=== PATIENT | female | born 1985 | race Two or more races ===

== ENCOUNTER 2018-09-08 20:22 | Emergency (ER) | payer SELFPAY ==
[2018-09-08 22:40] LABS: ABSOLUTE EOSINOPHILS # (AUTO) 0.1 10^3/uL (0.0-0.6); ABSOLUTE LYMPHOCYTES (AUTO) 2.6 10^3/uL (0.5-4.7); ABSOLUTE MONOCYTES (AUTO) 0.6 10^3/uL (0.1-1.4); ABSOLUTE NEUT (AUTO) 4.8 10^3/uL (1.7-8.2); BASOPHILS % (AUTO) 0.3 % (0-2); EOSINOPHILS % (AUTO) 1.3 % (0-6); HEMATOCRIT 35.8 % (36.0-47.0); HEMOGLOBIN 12.2 g/dL (12.0-15.5); LYMPHOCYTES % (AUTO) 31.8 % (13-45); MEAN CORPUSCULAR HEMOGLOBIN 30.1 pg (27.0-33.4); MEAN CORPUSCULAR VOLUME 89 fl (80-97); MONOCYTES % (AUTO) 7.9 % (3-13); PLATELET COUNT 237 10^3/uL (150-450); RED BLOOD COUNT 4.04 10^6/uL (3.72-5.28); RED CELL DISTRIBUTION WIDTH 13.4 % (11.5-14.0); SEGMENTED NEUTROPHILS % (AUTO) 58.7 % (42-78); TOTAL CELLS COUNTED % (AUTO) 100 %; WHITE BLOOD COUNT 8.2 10^3/uL (4.0-10.5)
[2018-09-08 22:50] LABS: AMORPHOUS SEDIMENT,URINE TRACE /HPF; APPEARANCE,URINE SLIGHTLY-CLOUDY; BILIRUBIN,URINE NEGATIVE (NEGATIVE); COLOR,URINE YELLOW; GLUCOSE, URINE NEGATIVE (NEGATIVE); KETONES,URINE NEGATIVE (NEGATIVE); LEUKOCYTE ESTERASE,URINE TRACE (NEGATIVE); NITRITE,URINE NEGATIVE (NEGATIVE); PROTEIN,URINE NEGATIVE (NEGATIVE); URINE SPECIFIC GRAVITY 1.012; UROBILINOGEN,URINE NEGATIVE mg/dL (<2.0)
[2018-09-08 23:02] LABS: ANION GAP 9 (5-19); BLOOD UREA NITROGEN 7 mg/dL (7-20); CALCIUM 9.3 mg/dL (8.4-10.2); CARBON DIOXIDE 23 mmol/L (22-30); CHLORIDE 105 mmol/L (98-107); GLUCOSE 82 mg/dL (75-110); SODIUM 137.2 mmol/L (137-145)
[2018-09-09] MEDS ORDERED: METOCLOPRAMIDE HCL INJ/PF 10 MG/2 ML SDV IM ONE (00:36)
--- NOTE | 2018-09-09 00:49 | ER Document Report ---
ED General - General Chief Complaint: Headache Stated Complaint: HEADACHE, RIGHT EAR PAIN, DIARRHEA Time Seen by Provider: 09/09/18 00:29 Notes: Patient is a 32-year-old female presents with a few different complaints. She is Thai-speaking but she does have family member at bedside who said that she would prefer to translate for the patient. I asked family member to asked questions exactly how I am asking them and to translate the patient's response exactly how she says it. Patient is found members agreeable to this and did perform this task for me. Patient is a 32-year-old female presents with complaint of being . She had some cramping pain in the lower abdomen as well as in the lower back. No abnormal vaginal discharge or bleeding. No dysuria. Patient also complains of some intermittent headaches for a few weeks. Says they come and go. Gradual onset. Looking at bright lights make the headaches worse. When she gets a headache she gets a feel sensation as of when the swelling gets her right eardrum. She says she did take Tylenol for the headaches initially but when she found out she was she stopped taking the Tylenol. She denies any focal weakness or numbness. No trauma. No injuries. No fevers. No other complaints at this time. TRAVEL OUTSIDE OF THE [place] IN LAST 30 DAYS: No - Related Data Allergies/Adverse Reactions: No Known Allergies Allergy (Verified 07/15/12 12:29) Past Medical History - Social History Smoking Status: Never Smoker Chew tobacco use (# tins/day): No Frequency of alcohol use: None Drug Abuse: None Family History: Reviewed & Not Pertinent Patient has suicidal ideation: No Patient has homicidal ideation: No - Past Medical History Cardiac Medical History: Reports: Hx Hypertension Renal/ Medical History: Denies: Hx Peritoneal Dialysis - Immunizations Hx Diphtheria, Pertussis, Tetanus Vaccination: No Review of Systems - Review of Systems Notes: My Normal Review Basic REVIEW OF SYSTEMS: CONSTITUTIONAL : Denies fever, chills, or sweats. Denies recent illness. EENT: Denies eye, throat, or mouth pain or symptoms. Denies nasal or sinus congestion. Sensation of wind blowing against right TM. CARDIOVASCULAR: Denies chest pain. RESPIRATORY: Denies cough, cold, or chest congestion. Denies shortness of breath, difficulty breathing, or wheezing. GASTROINTESTINAL: Denies abdominal pain. Morning sickness GENITOURINARY: Denies difficulty urinating, painful urination, burning, frequency, or blood in urine. FEMALE GENITOURINARY: . Some lower abdominal cramping. MUSCULOSKELETAL: Denies neck or back pain or joint pain or swelling. SKIN: Denies rash or skin lesions.. NEUROLOGICAL: Denies altered mental status or loss of consciousness. Has a headache. Denies weakness or paralysis or loss of use of either side. Denies problems with gait or speech. Denies sensory or motor loss. ALL OTHER SYSTEMS REVIEWED AND NEGATIVE. Physical Exam - Vital signs Vitals: Temp Pulse Resp BP Pulse Ox 98.8 F 84 22 H 133/79 H 100 09/08/18 20:27 09/08/18 20:27 09/08/18 20:09/08/18 20:09/08/18 20:27 - Notes Notes: General Appearance: Well nourished, alert, cooperative, no acute distress, no obvious discomfort. Well-appearing. Vitals: reviewed, See vital signs table. Head: no swelling or tenderness to the head Eyes: PERRL, EOMI, Conjuctiva clear Mouth: No decreasd moisture Ears: Normal-appearing tympanic membranes bilaterally. Throat: No tonsillar inflammation, No airway obstruction, No lymphadenopathy Lungs: No wheezing, No rales, No rhonci, No accessory muscle use, good air exchange bilaterally. Heart: Normal rate, Regular rythm, No murmur, no rub Abdomen: Normal BS, soft, No rigidity, No abdominal tenderness, No guarding, no rebound, no abdominal masses, no organomegaly Extremities: strength 5/5 in all extremities, good pulses in all extremities, no swelling or tenderness in the extremities, no edema. Skin: warm, dry, appropriate color, no rash Neuro: speech clear, oriented x 3, normal affect, responds appropriately to questions. Course - Re-evaluation Re-evalutation: 09/10/18 04:02 Evaluation the patient is here I do not see any signs of infection or swelling. Patient is acting appropriately. Neurologic exam is normal. This apparently has been a recurring issue since becoming . She does have some intermittent mild headaches associate with this as well. She does not have any focal neurologic deficits and does not have a severe headache or rapid onset headache that would require CT scan at this time. Ultrasound the baby shows normal IUP with appropriate heart rate. She has had some nausea. I therefore have given her Reglan. This helped both her headache and her nausea. I will prescribe this for her to help with any recurrent headaches nausea she has been . I encouraged her return to ER immediately if she has any vaginal bleeding, increasing pain, abnormal discharge, vomiting, or severe headache. Patient agrees with plan and will be discharged home. Dictation of this chart was performed using voice recognition software; therefore, there may be some unintended grammatical errors. - Vital Signs Vital signs: Temp Pulse Resp BP Pulse Ox 97.8 F 84 16 119/64 100 09/09/18 02:30 09/09/18 02:30 09/09/18 02:30 09/09/18 02:30 09/09/18 02:30 - Laboratory Result Diagrams: 09/08/18 22:15 09/08/18 22:15 Laboratory results interpreted by me: 09/08/18 09/08/18 09/08/18 22:15 22:15 22:15 Hct 35.8 L Creatinine 0.51 L Beta HCG, Quant 54360.00 H Urine Blood SMALL H Ur Leukocyte Esterase TRACE H Discharge - Discharge Clinical Impression: Headache Qualifiers: Headache type: unspecified Headache chronicity pattern: episodic headache Intractability: not intractable Qualified Code(s): R51 - Headache Qualifiers: Weeks of gestation: 17 weeks Qualified Code(s): Z3A.17 - 17 weeks gestation of Condition: Good Disposition: HOME, SELF-CARE Additional Instructions: Your ultrasound shows that you are 17 weeks . No concerning findings on the ultrasound. Your laboratory blood work did not show any concerning abnormalities. The medicine we gave you for headache is called Reglan. This medication is safe in and can be used for headaches or vomiting or nausea. I have prescribed this medication as well. The medication will make you little bit sleepy. Please do not drive after taking the medication. Please follow-up with your OB doctor this week for reevaluation. Please return to the ER if you have worsening headaches, vomiting, fevers, abdominal pain, vaginal bleeding, abnormal vaginal discharge, or if you feel unwell in any way. Prescriptions: Metoclopramide HCl [Reglan 10 mg Tablet] 1 tab PO ASDIR PRN #25 tablet PRN Reason: Forms: Return to Work
--- NOTE | 2018-09-09 02:03 | RADIOLOGY REPORT (SQ) ---
EXAM DESCRIPTION: US LIMITED COMPLETED DATE/TME: 09/09/2018 00:36 CLINICAL HISTORY: 32 years, Female, abdominal pain in COMPARISON: None. TECHNIQUE: Limited OB ultrasound LIMITATIONS: None. FINDINGS: Single, live intrauterine gestation in the breech presentation. Current ultrasound age is 17 weeks 2 days. A detailed anatomic assessment was not performed. The placenta is posterior in location with a grade 1 echotexture. No evidence for previa. Amniotic fluid index is 5.7 cm. Heart tones obtained at 155 bpm. IMPRESSION: Single, live intrauterine gestation with current ultrasound age 17 weeks 2 days. Nonemergent follow-up recommended copyright 2010 [employer]- All Rights Reserved
[2018-09-09 02:57] VITALS: BP 119/64
== END 2018-09-09 02:57 | disposition home or self-care (01) ==
LOC: ER 20:22
DX: O26.892 Other specified pregnancy related conditions, second trimester (principal); R51 Headache; R10.30 Lower abdominal pain, unspecified; R11.0 Nausea; O99.89 Other specified diseases and conditions complicating pregnancy, childbirth and the puerperium; M54.5 Low back pain; O16.2 Unspecified maternal hypertension, second trimester; Z3A.17 17 weeks gestation of pregnancy
CPT/HCPCS: 99284; 96372; 36415; 84702; 85025; 80048; 81001; 76815; J2765

== ENCOUNTER → 2018-09-29 | Outpatient (CLI) | payer SELFPAY ==
--- NOTE | 2018-09-29 15:40 | RADIOLOGY REPORT (SQ) ---
EXAM DESCRIPTION: U/S OB 14+ TRNABD 1GES W/O DOP COMPLETED DATE/TIME: 09/29/2018 2:45 pm REASON FOR STUDY: Z34.82 ENCOUNTER FOR SUPRVSN OF NORMAL , FIRST TRIMESTER Z34.81 ENCOUNTE R FOR SUPRVSN OF NORMAL , FIRST TRIM COMPARISON: 09/09/2018 TECHNIQUE: Static and Dynamic grayscale imaging performed of gravid uterus using transabdominal appr oach. Additional selected color Doppler and spectral images recorded. All stored on PACS. LIMITATIONS: None. FINDINGS: FETUSES SEEN:1 EGA: 20 weeks 5 days Calculated using BPD,FL,HC,AC documented on images. No discrepancy with clinica l dates. LYNETTE: 02/11/2019 EFW: 395 g PERCENTILE: Not calculated GLORIA: 16.2 PLACENTA: Fundal grade 1 PRESENTATION: Breech/variable ANATOMY: HEART RATE: 149 beats per minute. FOUR CHAMBER HEART: Visualized. THREE VESSEL CORD: Yes. CORD INSERTION: Visualized. KIDNEYS AND BLADDER: Visualized. Appear normal. STOMACH: Visualized. Appears normal. SPINE: Normal as visualized. BRAIN AND LATERAL VENTRICLES: Visualized. Appear normal. OTHER: No other significant finding. MATERNAL ADNEXA: Maternal ovaries not visualized. CERVICAL LENGTH: 3.5 cm. Closed. OTHER: No other significant finding. IMPRESSION: LIVING INTRAUTERINE . ESTIMATED GESTATIONAL AGE 20 weeks 5 days. NO VISUALIZED ANOMALIES. Trimester of : Second trimester - 13 weeks 1 day to 27 weeks 6 days. TECHNICAL DOCUMENTATION: JOB ID: [id number] [employer]- All Rights Reserved Reading location - IP/workstation name: [email or web address]
== END ==
LOC: RAD 13:43
PROVIDERS: ATTEND Midwife
DX: Z34.82 Encounter for supervision of other normal pregnancy, second trimester (principal)
CPT/HCPCS: 76805

== ENCOUNTER 2018-12-11 10:27 | Outpatient (CLI) | payer SELFPAY ==
[2018-12-11 11:22] LABS: APPEARANCE,URINE SLIGHTLY-CLOUDY; BILIRUBIN,URINE NEGATIVE (NEGATIVE); COLOR,URINE AMBER; GLUCOSE, URINE NEGATIVE (NEGATIVE); KETONES,URINE TRACE mg/dL (NEGATIVE); LEUKOCYTE ESTERASE,URINE NEGATIVE (NEGATIVE); NITRITE,URINE NEGATIVE (NEGATIVE); PROTEIN,URINE 30 mg/dL (NEGATIVE); URINE SPECIFIC GRAVITY 1.025; UROBILINOGEN,URINE NEGATIVE mg/dL (<2.0)
[2018-12-11 11:32] LABS: BACTERIA (WET MOUNT) 4+ BACTERIA SEEN; EPITHELIALS (WET MOUNT) 4+ EPITHELIALS SEEN; RBCS (WET MOUNT) 1+ RBCS SEEN; T.VAGINALIS (WET MOUNT) NO TRICHOMONAS SEEN; WBCS (WET MOUNT) 3+ WBCS SEEN; YEAST (WET MOUNT) NO YEAST SEEN
[2018-12-11 11:55] LABS: URINE AMPHETAMINES SCREEN NEGATIVE; URINE BARBITURATES SCREEN NEGATIVE; URINE BENZODIAZEPINES SCREEN NEGATIVE; URINE COCAINE SCREEN NEGATIVE; URINE MARIJUANA (THC) SCREEN NEGATIVE; URINE METHADONE SCREEN NEGATIVE; URINE PHENCYCLIDINE SCREEN NEGATIVE
[2018-12-11 12:57] LABS: CHLAM PCR NOT DETECTED (NOT DETECT)
== END 2018-12-11 13:20 | disposition home or self-care (01) ==
LOC: LC 10:27
PROVIDERS: ATTEND Obstetrics & Gynecology Gynecology
PROC: 4A1HXCZ Monitoring of Products of Conception, Cardiac Rate, External Approach (ICD-10-PCS; principal; 2018-12-11)
DX: O47.03 False labor before 37 completed weeks of gestation, third trimester (principal); Z3A.31 31 weeks gestation of pregnancy
CPT/HCPCS: 80307; 81001; 84112; 87210; 87491; 87591

== ENCOUNTER → 2019-02-13 | Outpatient (CLI) | payer SELFPAY ==
--- NOTE | 2019-02-13 15:27 | RADIOLOGY REPORT (SQ) ---
EXAM DESCRIPTION: U/S OB 14+ TRNABD 1GES W/O DOP COMPLETED DATE/TIME: 02/13/2019 2:48 pm REASON FOR STUDY: Z34.83 ENCOUNTER FOR SUPRVSN OF NORMAL , THIRD TRIMESTER Z34.83 ENCOUNTE R FOR SUPRVSN OF NORMAL , THIRD TRIM COMPARISON: None. TECHNIQUE: Static and Dynamic grayscale imaging performed of gravid uterus using transabdominal appr oach. Additional selected color Doppler and spectral images recorded. All stored on PACS. LIMITATIONS: None. FINDINGS: FETUSES SEEN:1 EGA: 38 weeks 2 days Calculated using BPD,FL,HC,AC documented on images. No discrepancy with clinica l dates. LYNETTE: 02/25/2019 EFW: 3500+/- 518 grams PERCENTILE: Not calculated GLORIA: 9.3 cm. PLACENTA: Fundal. Grade 1. PRESENTATION: Cephalic. ANATOMY: HEART RATE: 152 beats per minute. FOUR CHAMBER HEART: Seen on the prior scan from 09/29/2018. THREE VESSEL CORD: Seen on the prior scan from 09/29/2018. CORD INSERTION: Seen on the prior scan from 09/29/2018. KIDNEYS AND BLADDER: Visualized. Appear normal. STOMACH: Visualized. Appears normal. SPINE: Seen on the prior scan from 09/29/2018. BRAIN AND LATERAL VENTRICLES: Seen on the prior scan from 09/29/2018. OTHER: No other significant finding. MATERNAL ADNEXA: Maternal ovaries not visualized. CERVICAL LENGTH: Not seen well enough. Closed. OTHER: No other significant finding. IMPRESSION: LIVING INTRAUTERINE . ESTIMATED GESTATIONAL AGE 38 weeks 2 days. NO VISUALIZED ANOMALIES. Trimester of : Third trimester - 28 weeks to delivery. TECHNICAL DOCUMENTATION: JOB ID: [id number]- All Rights Reserved Reading location - IP/workstation name: [email or web address]
== END ==
LOC: RAD 13:44
PROVIDERS: ATTEND Midwife
DX: Z34.83 Encounter for supervision of other normal pregnancy, third trimester (principal)
CPT/HCPCS: 76805

== ENCOUNTER 2019-02-18 14:07 | Outpatient (CLI) | payer SELFPAY ==
[2019-02-18 14:53] LABS: APPEARANCE,URINE CLOUDY; BILIRUBIN,URINE NEGATIVE (NEGATIVE); COLOR,URINE YELLOW; GLUCOSE, URINE NEGATIVE (NEGATIVE); KETONES,URINE NEGATIVE (NEGATIVE); LEUKOCYTE ESTERASE,URINE LARGE (NEGATIVE); NITRITE,URINE NEGATIVE (NEGATIVE); PROTEIN,URINE NEGATIVE (NEGATIVE); URINE SPECIFIC GRAVITY 1.017; UROBILINOGEN,URINE NEGATIVE mg/dL (<2.0)
[2019-02-18 15:05] LABS: URINE AMPHETAMINES SCREEN NEGATIVE; URINE BARBITURATES SCREEN NEGATIVE; URINE BENZODIAZEPINES SCREEN NEGATIVE; URINE COCAINE SCREEN NEGATIVE; URINE MARIJUANA (THC) SCREEN NEGATIVE; URINE METHADONE SCREEN NEGATIVE; URINE PHENCYCLIDINE SCREEN NEGATIVE
[2019-02-18] MEDS ORDERED: RINGERS SOLUTION,LACTATED 2,000 ML IV ONE (15:30)
[2019-02-18] MEDS ORDERED: RINGERS SOLUTION,LACTATED 1,000 ML IV PRN (16:17)
--- NOTE | 2019-02-18 20:15 | RADIOLOGY REPORT (SQ) ---
EXAM DESCRIPTION: [facility]: US LIMITED CLINICAL HISTORY: 33 years Female, IUP 40+2 limited care GLORIA COMPARISON: 02/13/2019. Report reviewed but images are not available for comparison. FINDINGS: Single fetus in vertex position heart rate 144 BPM Fluid: GLORIA 8.1 cm, adequate Placenta: Fundal Cervix could not be visualized IMPRESSION: 1. GLORIA 8.1 cm, adequate
--- NOTE | 2019-02-18 21:18 | Non Stress Test Report ---
Non Stress Test Datetime Report Generated by CPN: 02/18/2019 21:18 DEMOGRAPHIC EGA NST: 40.2 INDICATION Indication for Study: Ordered by Provider MONITORING Monitor Explained: Monitor Explained; Test Explained; Patient Verbalized Understanding Time on Monitor: 02/18/2019 19:31 Time off Monitor: 02/18/2019 20:28 NST Duration: 57 NST INTERVENTIONS NST Interventions: PO Hydration; IV Fluids Physician Notified NST: Dr. Salinas BABY A: [id number] BABY A Movement : Present Contraction Frequency : irregular FHR Baseline : 135 Accelerations : 15X15 Decelerations : None Variability : Moderate 6-25bpm NST Review: Meets Criteria for Reactive NST NST Review and Verified By : ANAI Schmidt Results: Reactive NST REPORT Report Trigger: Send Report
== END 2019-02-18 20:28 | disposition home or self-care (01) ==
LOC: LC 14:07
PROVIDERS: ATTEND Obstetrics & Gynecology
PROC: 4A1HXCZ Monitoring of Products of Conception, Cardiac Rate, External Approach (ICD-10-PCS; principal; 2019-02-18)
DX: O48.0 Post-term pregnancy (principal); O09.33 Supervision of pregnancy with insufficient antenatal care, third trimester; Z3A.40 40 weeks gestation of pregnancy
CPT/HCPCS: 59025; 76815; 80307; 81005; 84112

== ENCOUNTER 2019-02-20 17:45 | Inpatient (IN) | payer SELFPAY ==
[2019-02-20] MEDS ORDERED: RINGERS SOLUTION,LACTATED 1,000 ML IV ONE (18:47)
[2019-02-20 19:15] LABS: ABSOLUTE LYMPHOCYTES (AUTO) 2.1 10^3/uL (0.5-4.7); ABSOLUTE MONOCYTES (AUTO) 0.5 10^3/uL (0.1-1.4); ABSOLUTE NEUT (AUTO) 5.3 10^3/uL (1.7-8.2); BASOPHILS % (AUTO) 0.4 % (0-2); EOSINOPHILS % (AUTO) 0.6 % (0-6); HEMATOCRIT 32.3 % (36.0-47.0); LYMPHOCYTES % (AUTO) 25.9 % (13-45); MEAN CORPUSCULAR VOLUME 88 fl (80-97); MONOCYTES % (AUTO) 6.5 % (3-13); PLATELET COUNT 200 10^3/uL (150-450); RED BLOOD COUNT 3.66 10^6/uL (3.72-5.28); RED CELL DISTRIBUTION WIDTH 14.6 % (11.5-14.0); SEGMENTED NEUTROPHILS % (AUTO) 66.6 % (42-78); TOTAL CELLS COUNTED % (AUTO) 100 %
[2019-02-20 20:12] LABS: URINE AMPHETAMINES SCREEN NEGATIVE; URINE BARBITURATES SCREEN NEGATIVE; URINE BENZODIAZEPINES SCREEN NEGATIVE; URINE COCAINE SCREEN NEGATIVE; URINE MARIJUANA (THC) SCREEN NEGATIVE; URINE METHADONE SCREEN NEGATIVE; URINE PHENCYCLIDINE SCREEN NEGATIVE
--- NOTE | 2019-02-20 20:35 | Admission Physical ---
Datetime Report Generated by CPN: 02/20/2019 20:35 CURRENT ADMISSION Chief Complaint: Other Chief Complaint Other: oligohydramnios Indication for Induction: Oligohydramnios Admit Impression : Term, Intrauterine ; No Active Labor; Intact Membranes Admit Plan: Admit to Unit; Initiate Labor Induction Protocol ALLERGIES Medication Allergies: No Medication Allergies: No Known Allergies (02/20/2019) Latex: No Latex Allergies Food Allergies: None Environmental Allergies: None OBSTETRICAL HISTORY EDC: 02/16/2019 00:00 : 5 Para: 4 Term: 4 : 0 SAB: 0 IAB: 0 Ectopic: 0 Livin Cesareans: 1 VBACs: 0 Multiple Births: 0 Gestational Diabetes: No Rh Sensitization: No Incompetent Cervix: No MARY: No Infertility: No ART Treatment: No Uterine Anomaly: No IUGR: No Hx Previous C/S: Yes Macrosomia: No Hx Loss/Stillborn: No PIH: No Hx : No Placenta Previa/Abruption: Yes Depression/PP Depression: No PTL/PROM: No Post Hemorrhage: Yes Current Procedures: Ultrasound; NST Obstetrical History Comments: G1- 2002 PPH with blood transfusion G2- 2007 G3- 2008 G4-2013 primary c/s placental abruption G5- current limited PNC SEE RECORDS Alcohol: No Marijuana : No Cocaine: No Other Illicit Drugs: No Cigarettes: Never Smoker. [id number] MEDICAL HISTORY Diabetes: No Blood Transfusion: Yes Pulmonary Disease (Asthma, TB): No Breast Disease: No Hypertension: No Machine Molder Squeeze Surgery: No Heart Disease: No Hosp/Surgery: Yes Autoimmune Disorder: No Anesthetic Complications: No Kidney Disease: No Abnormal Pap Smear: No Neuro/Epilepsy: No Psychiatric Disorders: No Other Medical Diseases: No Hepatitis/Liver Disease: No Significant Family History: No Varicosities/Phlebitis: No Trauma/Violence : No Thyroid Dysfunction: No Medical History Comments: , CHILDBIRTH blood transfusion 2003, anemia, INFECTIOUS HISTORY Gonorrhea: No Genital Herpes: No Chlamydia: No Tuberculosis: No Syphilis: No Hepatitis: No HIV/AIDS Exposure: No Rash or Viral Illness: No HPV: No PHYSICAL EXAM General: Normal HEENT: Normal Neurologic: Normal Thyroid: Normal Heart: Normal Lungs: Normal Breast: Normal Back: Normal Abdomen: Normal Genitourinary Exam: Normal Extremities: Normal DTRs: Normal Pelvic Type: Adequate Vital Signs: Reviewed; Within Normal Limits VAGINAL EXAM Dilatation: 1 Effacement: 50 Station: -3 Contraction Comments: rare MEMBRANES Membranes: Intact FETUS A EGA: 40.4 Monitoring: External US FHR- Baseline: 150s Variability: Moderate 6-25bpm Accelerations: 15X15 Decelerations: None FHR Category: Category I Admit Comment: presents to L_D from the office secondary to oligohydramnios. Her GLORIA is 4 cm. She reports good movement and has no complaints. She is GBS Neg. She has h/o (3) vaginal deliveries and had a Primary LTCS secondary to placental abruption w/ her last delivery. PLANS FOR LABOR AND DELIVERY Labor and Delivery: None Pain Management: Natural Feeding Preference: Breast Benefit of Breast Feed Discussed: Yes Circumcision: N/A INFORMED CONSENT Signature: with User ID: [email or web address]
[2019-02-20] MEDS ORDERED: OXYTOCIN 10 UNIT/ML VIAL ONE (20:48)
[2019-02-20] MEDS ORDERED: MISOPROSTOL 0.2 MG TABLET ONE (20:48)
[2019-02-20] MEDS ORDERED: OXYTOCIN/NORMAL SALINE 20 UNIT/1,000 ML RTUINJ ONE (20:49)
[2019-02-20] MEDS ORDERED: LIDOCAINE 1% INJ-PF (10 MG/ML) 30 ML SDV ONE (20:49)
[2019-02-20] MEDS ORDERED: PHENYLEPHRINE HCL INJ/PF 10 MG/1 ML SDV ONE (23:22)
[2019-02-20] MEDS ORDERED: EPHEDRINE SULFATE INJ 50 MG/1 ML AMPULE ONE (23:23)
[2019-02-20] MEDS ORDERED: BUPIVACAINE HCL 0.25 % INJ/PF (2.5 MG/1 ML) 30 ML VIAL ONE (23:23)
[2019-02-20] MEDS ORDERED: FENTANYL CITRATE INJ/PF 100 MCG/2 ML AMPUL ONE (23:23)
[2019-02-20] MEDS ORDERED: FENTANYL/BUPIVACAINE/NS/PF 300 MCG/150 ML RTUINJ EPI ONE (23:23)
[2019-02-21] MEDS ORDERED: HYDRALAZINE HCL INJ/PF 20 MG/1 ML SDV ONE (03:19)
[2019-02-21] MEDS ORDERED: HYDRALAZINE HCL INJ/PF 20 MG/1 ML SDV IV ONE (04:30)
[2019-02-21] MEDS ORDERED: NIFEDIPINE 30 MG TAB.ER.24 PO ONE ×2 (06:21→07:30)
[2019-02-21 08:09] LABS: ALBUMIN 3.4 g/dL (3.5-5.0); ALKALINE PHOSPHATASE 164 U/L (38-126); ANION GAP 10 (5-19); ASPARTATE AMINO TRANSFERASE 32 U/L (14-36); BILIRUBIN,DIRECT 0.1 mg/dL (0.0-0.4); BILIRUBIN,TOTAL 0.5 mg/dL (0.2-1.3); BLOOD UREA NITROGEN 5 mg/dL (7-20); CALCIUM 8.9 mg/dL (8.4-10.2); CARBON DIOXIDE 22 mmol/L (22-30); CHLORIDE 103 mmol/L (98-107); POTASSIUM 3.7 mmol/L (3.6-5.0); TOTAL PROTEIN 6.8 g/dL (6.3-8.2)
[2019-02-21 08:14] LABS: GLUCOSE 69 mg/dL (75-110)
[2019-02-21] MEDS ORDERED: RINGERS SOLUTION,LACTATED 1,000 ML IV PRN (09:03)
[2019-02-21] MEDS ORDERED: PSEUDOEPHEDRINE HCL 30 MG TABLET PO PRN (10:39)
[2019-02-21] MEDS ORDERED: PROMETHAZINE HCL 25 MG SUPP.RECT PR PRN (10:39)
[2019-02-21] MEDS ORDERED: PROMETHAZINE HCL INJ 25 MG/1 ML VIAL IV PRN (10:39)
[2019-02-21] MEDS ORDERED: GLYCERIN/WITCH HAZEL LEAF 1 EACH MED..WIPE TP PRN (10:39)
[2019-02-21] MEDS ORDERED: OXYTOCIN/NORMAL SALINE 20 UNIT/1,000 ML RTUINJ IV PRN (10:39)
[2019-02-21] MEDS ORDERED: DIPH/PERTUSS(ACELL)/TETANUS VAC/PF 0.5 ML SYR (>=10YO) IM PRN (10:39)
[2019-02-21] MEDS ORDERED: DIBUCAINE 1% OINTMENT 56 GM TP PRN (10:39)
[2019-02-21] MEDS ORDERED: MEASLES,MUMPS&RUBELLA VACC/PF 0.5 ML VIAL SUBCUT PRN (10:39)
[2019-02-21] MEDS ORDERED: NA PHOS,M-B/NA PHOS,DI-BA (ADULT) 133 ML ENEMA PR PRN (10:39)
[2019-02-21] MEDS ORDERED: BENZOCAINE/MENTHOL AEROSOL SPRAY 56 ML TOP PRN (10:39)
[2019-02-21] MEDS ORDERED: ACETAMINOPHEN WITH CODEINE #3 TABLET PO PRN ×2 (10:39)
[2019-02-21] MEDS ORDERED: MAGNESIUM HYDROXIDE SUSP 30 ML UDCUP PO PRN (10:39)
[2019-02-21] MEDS ORDERED: PROMETHAZINE HCL 25 MG TABLET PO PRN (10:39)
[2019-02-21] MEDS ORDERED: ZOLPIDEM TARTRATE 5 MG TABLET PO PRN (10:39)
[2019-02-21] MEDS ORDERED: DIPHENHYDRAMINE HCL 25 MG CAPSULE PO PRN (10:39)
[2019-02-21] MEDS ORDERED: ACETAMINOPHEN 325 MG TABLET PO PRN (10:39)
--- NOTE | 2019-02-21 10:50 | Warning Signs in Babies ---
VOD Warning Signs Datetime Report Generated by CPN: 02/21/2019 10:50 VOD#608 -Warning Signs in Babies: Viewed with Parent(s)/Family (02/21/2019 10:30:Anita Akbar RN)
[2019-02-21] MEDS ORDERED: IBUPROFEN 800 MG TABLET ONE (11:15)
[2019-02-21] MEDS: IBUPROFEN 800 MG TABLET PO SCH ×2 (15:21→21:57)
[2019-02-21] MEDS: FERROUS SULFATE 325 MG TABLET PO SCH (17:10)
[2019-02-21] MEDS: DOCUSATE SODIUM 100 MG CAPSULE PO SCH (17:10)
[2019-02-21] MEDS: FAMOTIDINE 20 MG TABLET PO SCH (21:57)
[2019-02-22 05:51] LABS: HEMATOCRIT 32.3 % (36.0-47.0); MEAN CORPUSCULAR HEMOGLOBIN 29.9 pg (27.0-33.4); MEAN CORPUSCULAR HGB CONC 33.9 g/dL (32.0-36.0); MEAN CORPUSCULAR VOLUME 88 fl (80-97); PLATELET COUNT 192 10^3/uL (150-450); RED BLOOD COUNT 3.66 10^6/uL (3.72-5.28); RED CELL DISTRIBUTION WIDTH 14.6 % (11.5-14.0); WHITE BLOOD COUNT 10.3 10^3/uL (4.0-10.5)
[2019-02-22] MEDS: IBUPROFEN 800 MG TABLET PO SCH ×3 (06:05→21:18)
[2019-02-22] MEDS: PRENATAL VITAMIN W DHA CAPSULE PO SCH (09:17)
[2019-02-22] MEDS: SENNOSIDES/DOCUSATE 8.6-50 MG 1 EACH TABLET PO SCH (09:17)
[2019-02-22] MEDS: DOCUSATE SODIUM 100 MG CAPSULE PO SCH ×2 (09:18→18:09)
[2019-02-22] MEDS: FAMOTIDINE 20 MG TABLET PO SCH ×2 (09:18→21:18)
[2019-02-22] MEDS: FERROUS SULFATE 325 MG TABLET PO SCH ×2 (09:18→18:09)
--- NOTE | 2019-02-22 10:13 | PDOC PROGRESS REPORT ---
Subjective-OB Progress Note for:: 02/22/19 Subjective: Doing well, no c/o, voiding, Physical Exam (OB) Vital Signs: Temp Pulse Resp BP Pulse Ox 98.1 F 65 16 108/57 L 97 02/22/19 07:42 02/22/19 07:42 02/22/19 07:42 02/22/19 07:42 02/22/19 07:42 Intake & Output 02/21/19 02/22/19 02/23/19 06:59 06:59 06:59 Weight 101.7 kg - Lochia Lochia Amount: Scant < 10 ml Lochia Color: Rubra/Red - Abdomen Fundal Description: Firm, Midline Fundal Height: u/u - u/2 Objective-Diagnostic Laboratory: 02/22/19 05:26 02/21/19 07:22 02/22/19 05:26 WBC 10.3 RBC 3.66 L Hgb 11.0 L Hct 32.3 L MCV 88 MCH 29.9 MCHC 33.9 RDW 14.6 H Plt Count 192 Assessment and Plan(PN) - Assessment and Plan (1) Non-Mexican speaking patient Is this a current diagnosis for this admission?: Yes (2) Vaginal after , delivered, current hospitalization Is this a current diagnosis for this admission?: Yes (3) Oligohydramnios antepartum Qualifiers: Fetus number: single or unspecified fetus Qualified Code(s): O41.00X0 - Oligohydramnios, unspecified trimester, not applicable or unspecified Is this a current diagnosis for this admission?: Yes - Time Spent with Patient Time with patient: Less than 15 minutes Medications reviewed and adjusted accordingly: Yes - Disposition Anticipated Discharge: Home Within: within 24 hours
[2019-02-23] MEDS: IBUPROFEN 800 MG TABLET PO SCH (06:10)
[2019-02-23] MEDS: DOCUSATE SODIUM 100 MG CAPSULE PO SCH (09:11)
[2019-02-23] MEDS: PRENATAL VITAMIN W DHA CAPSULE PO SCH (09:11)
[2019-02-23] MEDS: FAMOTIDINE 20 MG TABLET PO SCH (09:11)
[2019-02-23] MEDS: FERROUS SULFATE 325 MG TABLET PO SCH (09:11)
[2019-02-23] MEDS: SENNOSIDES/DOCUSATE 8.6-50 MG 1 EACH TABLET PO SCH (09:11)
[2019-02-23 09:59] VITALS: BP 126/74
[2019-02-23] MEDS ORDERED: IBUPROFEN 800 MG TABLET PO SCH (10:00)
--- NOTE | 2019-02-23 10:15 | PDOC DISCHARGE SUMMARY ---
Impression - Admit/DC Date/PCP Admission Date/Primary Care Provider: 02/20/19 17:45 JEANINE GARCIA CNM Discharge Date: 02/23/19 - PP Day #2, doing well, plans IUD for PP contraception, pt to f/u with the [facility]. , O negative - Discharge Diagnosis (1) Normal course Is this a current diagnosis for this admission?: Yes (2) Non-Bermudian speaking patient Is this a current diagnosis for this admission?: Yes (3) Oligohydramnios antepartum Is this a current diagnosis for this admission?: Yes (4) Vaginal after , delivered, current hospitalization Is this a current diagnosis for this admission?: Yes - Additional Information Resuscitation Status: Full Code Discharge Diet: As Tolerated, Regular Discharge Activity: Activity As Tolerated, No Lifting Over 10 Pounds, Pelvic Rest Referrals: JEANINE GARCIA CNM [Primary Care Provider] - Prescriptions: Ibuprofen [Motrin 800 mg Tablet] 800 mg PO Q8A #60 tablet Home Medications: 95/Iron Fum/Folic/Dha [ + Dha Combo Pack] 1 tab PO DAILY 12/11/18 Ibuprofen [Motrin 800 mg Tablet] 800 mg PO Q8A #60 tablet 02/23/19 HPI Reason(s) for Admission: Induction of Labor, Obstetric Complications Admission Note: oligohydramnios Procedures: NST, Ultrasound, Management of Obstetric Complications Intrapartum Procedure Note: successful Hospital Course Hospital Course: routine Results Laboratory Results: WBC 10.3 10^3/uL (4.0-10.5) 02/22/19 05:26 RBC 3.66 10^6/uL (3.72-5.28) L 02/22/19 05:26 Hgb 11.0 g/dL (12.0-15.5) L 02/22/19 05:26 Hct 32.3 % (36.0-47.0) L 02/22/19 05:26 MCV 88 fl (80-97) 02/22/19 05:26 MCH 29.9 pg (27.0-33.4) 02/22/19 05:26 MCHC 33.9 g/dL (32.0-36.0) 02/22/19 05:26 RDW 14.6 % (11.5-14.0) H 02/22/19 05:26 Plt Count 192 10^3/uL (150-450) 02/22/19 05:26 Lymph % (Auto) 25.9 % (13-45) 02/20/19 19:00 Beltrami % (Auto) 6.5 % (3-13) 02/20/19 19:00 Eos % (Auto) 0.6 % (0-6) 02/20/19 19:00 Baso % (Auto) 0.4 % (0-2) 02/20/19 19:00 Absolute Neuts (auto) 5.3 10^3/uL (1.7-8.2) 02/20/19 19:00 Absolute Lymphs (auto) 2.1 10^3/uL (0.5-4.7) 02/20/19 19:00 Absolute Monos (auto) 0.5 10^3/uL (0.1-1.4) 02/20/19 19:00 Absolute Eos (auto) 0.0 10^3/uL (0.0-0.6) 02/20/19 19:00 Absolute Basos (auto) 0.0 10^3/uL (0.0-0.2) 02/20/19 19:00 Seg Neutrophils % 66.6 % (42-78) 02/20/19 19:00 Sodium 134.8 mmol/L (137-145) L 02/21/19 07:22 Potassium 3.7 mmol/L (3.6-5.0) 02/21/19 07:22 Chloride 103 mmol/L (98-107) 02/21/19 07:22 Carbon Dioxide 22 mmol/L (22-30) 02/21/19 07:22 Anion Gap 10 (5-19) 02/21/19 07:22 BUN 5 mg/dL (7-20) L 02/21/19 07:22 Creatinine 0.54 mg/dL (0.52-1.25) 02/21/19 07:22 Est GFR ( Amer) > 60 (>60) 02/21/19 07:22 Est GFR (MDRD) Non-Af > 60 (>60) 02/21/19 07:22 Glucose 69 mg/dL (75-110) L 02/21/19 07:22 Uric Acid 4.0 mg/dL (2.5-6.2) 02/21/19 07:22 Calcium 8.9 mg/dL (8.4-10.2) 02/21/19 07:22 Total Bilirubin 0.5 mg/dL (0.2-1.3) 02/21/19 07:22 Direct Bilirubin 0.1 mg/dL (0.0-0.4) 02/21/19 07:22 Neonat Total Bilirubin Not Reportable 02/21/19 07:22 Neonat Direct Bilirubin Not Reportable 02/21/19 07:22 Neonat Indirect Bili Not Reportable 02/21/19 07:22 AST 32 U/L (14-36) 02/21/19 07:22 ALT 20 U/L (<35) 02/21/19 07:22 Alkaline Phosphatase 164 U/L (38-126) H 02/21/19 07:22 Lactate Dehydrogenase 181 U/L (120-246) 02/21/19 07:22 Total Protein 6.8 g/dL (6.3-8.2) 02/21/19 07:22 Albumin 3.4 g/dL (3.5-5.0) L 02/21/19 07:22 Urine Opiates Screen NEGATIVE 02/20/19 19:37 Urine Methadone Screen NEGATIVE 02/20/19 19:37 Ur Barbiturates Screen NEGATIVE 02/20/19 19:37 Ur Phencyclidine Scrn NEGATIVE 02/20/19 19:37 Ur Amphetamines Screen NEGATIVE 02/20/19 19:37 U Benzodiazepines Scrn NEGATIVE 02/20/19 19:37 Urine Cocaine Screen NEGATIVE 02/20/19 19:37 U Marijuana (THC) Screen NEGATIVE 02/20/19 19:37 RPR NONREACTIVE (NONREACTIVE) 02/20/19 19:00 Blood Type O NEGATIVE 02/20/19 19:00 Antibody Screen NEGATIVE 02/20/19 19:00 Plan Health Concerns: none Plan of Treatment: d/c to home, pt to f/u in 6 wks at [facility] for PP check-up. Plans IUD Time Spent: Less than 30 Minutes
--- NOTE | 2019-02-24 12:01 | Delivery Summary ---
Del Sum A-C Datetime Report Generated by CPN: 02/24/2019 12:01 DELIVERY PERSONNEL DELIVERY PERSONNEL: [id number] Delivery Doctor:: Dina Cottrell MD Anesthesiologist:: Venita Little MD Labor and Delivery Nurse:: Anita Akbar RNdistrict wire chief Nurse:: Capri Avila RN Safety Supervisor/BRANDING MACHINE TENDER: Jessica Dobson CST Additional Personnel: : Natalia Gaffney RN MATERNAL INFORMATION Delivery Anesthesia: Epidural Medications After Delivery: Pitocin Bolus-Please Comment Meds After Delivery Comment: Pitocin 20U/1000mL Delivery QBL: 50 Maternal Complications: None Provider Comments: VFI delivered in DEEPA presentation with double nuchal cord and compound left hand. Shoulders and body delivered without difficulty. Cord doubly clamped and to maternal abdomen for NRP. Placenta delivered intact spontaneously. FF at U. Mother and baby stable upon provider leaving the room. Superficial perineal lacerations hemostatic and no need for repair. successful . LABOR SUMMARY EDC: 02/16/2019 00:00 No. Babies in Womb: 1 Attempted: Yes Labor Anesthesia: Epidural LABOR INFORMATION Reason for Induction: Oligohydramnios Reason for Induction- Other: Onset of Labor: 02/21/2019 02:00 Complete Dilatation: 02/21/2019 10:17 Other Ripening Agents: 8 Oxytocin: Induction Group B Beta Strep: NEGATIVE Steroids Given: None Reason Steroids Not Administered: Not Applicable MEMBRANES Membranes Rupture Method: Artificial Rupture of Membranes: 02/21/2019 09:16 Length of Rupture (hr): 1.08 Amniotic Fluid Amount: None STAGES OF LABOR Stage 1 hr: 8 Stage 1 min: 17 Stage 2 hr: 0 Stage 2 min: 4 Stage 3 hr: 0 Stage 3 min: 2 Total Time in Labor hr: 8 Total Time in Labor min: 23 VAGINAL DELIVERY Episiotomy: None Laceration #1: Perineal Laceration Extension #1: N/A Other Laceration: superficial tear, no repair needed Laceration Repair: Not Applicable Laceration Repair Note: superficial abrasion on perineum, no repair needed. Sponge Count Correct: Yes Sharps Count Correct: Yes BABY A INFORMATION Delivery Date/Time: 02/21/2019 10:21 Method of Delivery: Vaginal Born in Route : Yes : Successful Forceps: N/A Vacuum Extraction: N/A Shoulder Dystocia : No PRESENTATION/POSITION BABY A Presentation: Cephalic Cephalic Presentation: Vertex Vertex Position: Left Occipital Anterior Breech Presentation: N/A PLACENTA INFORMATION BABY A Placenta Delivery Time : 02/21/2019 10:23 Placenta Method of Delivery: Spontaneous Placenta Status: Delivered SCORES BABY A Heart Rate 1 min: >100 bpm Resp Effort 1 min: Good Cry Reflex Irritability 1 min: Cough or Sneeze or Pulls Away Muscle Tone 1 min: Active Motion Color 1 min: Blue/Pale Resuscitation Effort 1 min: Tactile Stimulation SCORE 1 MIN: 8 Heart Rate 5 min: >100 bpm Resp Effort 5 min: Good Cry Reflex Irritability 5 min: Cough or Sneeze or Pulls Away Muscle Tone 5 min: Active Motion Color 5 min: Body [place], Extremities Blue Resuscitation Effort 5 min: Tactile Stimulation SCORE 5 MIN: 9 INFANT INFORMATION BABY A Gestational Age at Delivery: 40.5 Gestational Status: Full Term- 39- 40.6 Weeks Infant Outcome : Liveborn Infant Condition : Stable Infant Sex: Female IDENTIFICATION BABY A Infant Verification Date/Time: 02/21/2019 11:20 ID Band Number: [id number] Mother's Name Verified: Yes RN Verifying Infant: Sarkis Akbar RN Additional Verifying Personnel: Sarkis Avila RN WEIGHT/LENGTH BABY A Birthweight (gm): 3378 Weight (lb): 7 Infant Weight (oz): 7 Infant Length (in): 21.00 Infant Length (cm): 53.34 CORD INFORMATION BABY A No. Cord Vessels: 3 Nuchal Cord : Around Neck x2, Loose Cord Blood Taken: Yes-For Eval (Mom's Blood Type - or O+) Suction: Mouth ASSESSMENT BABY A Infant Complications: Multiple Late Decels; Multiple Variable Decels; Oligohydramnios Physical Findings at Delivery: Within Normal Limits Respirations: Appears Normal Skin to Skin: Yes Skin to Skin: Yes Saturator Operator/ALS Called : No Care By: M Sasala RN BABY B INFORMATION : N/A SIGNATURES Signature: with User ID: [email or web address]
== END 2019-02-23 11:35 | disposition home or self-care (01) | DRG 807 ==
LOC: EDBD 17:45 → LR 17:45 → 2S 02-21 15:00
PROVIDERS: ADMIT Student in an Organized Health Care Education/Training Program; ATTEND Student in an Organized Health Care Education/Training Program
PROC: 10E0XZZ Delivery of Products of Conception, External Approach (ICD-10-PCS; principal; 2019-02-21)
PROC: 10907ZC Drainage of Amniotic Fluid, Therapeutic from Products of Conception, Via Natural or Artificial Opening (ICD-10-PCS; 2019-02-21)
DX: O41.03X0 Oligohydramnios, third trimester, not applicable or unspecified (principal); Z37.0 Single live birth; O32.6XX0 Maternal care for compound presentation, not applicable or unspecified; O76 Abnormality in fetal heart rate and rhythm complicating labor and delivery; O70.0 First degree perineal laceration during delivery; O34.219 Maternal care for unspecified type scar from previous cesarean delivery; O69.81X0 Labor and delivery complicated by cord around neck, without compression, not applicable or unspecified; Z3A.40 40 weeks gestation of pregnancy
CPT/HCPCS: 36415; 80053; 80307; 83615; 84550; 85025; 85027; 86592; 86850; 86900; 86901; J0360; J2370; J2590; J3010; J3490

== ENCOUNTER 2019-09-04 12:40 | Day surgery (SDC) | payer SELFPAY ==
[~2019-09-04 12:40] MED LIST: GLYCOPYRROLATE 1 MG/5 ML VIAL ONE; NEOSTIGMINE METHYLSULFATE 10 MG/10 ML VIAL ONE; ROCURONIUM BROMIDE INJ 50 MG/5 ML VIAL IV ONE; SUCCINYLCHOLINE CHLORIDE INJ 200 MG/10 ML VIAL ONE
[2019-09-04] MEDS ORDERED: ACETAMINOPHEN 325 MG TABLET PO ONE (12:58)
[2019-09-04] MEDS ORDERED: NORMAL SALINE 1000 ML 1,000 ML IV ONE (12:58)
--- NOTE | 2019-09-04 13:01 | ER Document Report ---
ED General - General Stated Complaint: ABDOMINAL PAIN Time Seen by Provider: 09/04/19 12:55 Primary Care Provider: JEANINE GARCIA CNM [Primary Care Provider] - Follow up as needed Mode of Arrival: Ambulatory Information source: Patient TRAVEL OUTSIDE OF THE [place] IN LAST 30 DAYS: No - HPI Onset: Other - last night Onset/Duration: Gradual Quality of pain: No pain Severity: Moderate Pain Level: 3 Associated symptoms: Fever, Nausea Exacerbated by: Food Relieved by: Denies Similar symptoms previously: No Recently seen / treated by doctor: No Notes: 33 year old female with no significant PMH here in the ER for abdominal pain, flank pain, nausea and fevers. The patient says the abdominal pain started last night and was epigastric in location. This morning she noticed fevers and the abdominal pain seemed to be more in her right lower quadrant and flanks. The patient denies urinary or vaginal symptoms. - Related Data Allergies/Adverse Reactions: No Known Allergies Allergy (Verified 02/20/19 17:55) Past Medical History - General Information source: Patient - Social History Smoking Status: Never Smoker Frequency of alcohol use: None Drug Abuse: None Lives with: Family Family History: Reviewed & Not Pertinent - Past Medical History Cardiac Medical History: Reports: Hx Hypertension Renal/ Medical History: Denies: Hx Peritoneal Dialysis - Immunizations Hx Diphtheria, Pertussis, Tetanus Vaccination: No Review of Systems - Review of Systems Constitutional: Fever EENT: No symptoms reported Cardiovascular: No symptoms reported Respiratory: No symptoms reported Gastrointestinal: Abdominal pain, Nausea Genitourinary: Flank pain Female Genitourinary: No symptoms reported Musculoskeletal: No symptoms reported Skin: No symptoms reported Hematologic/Lymphatic: No symptoms reported Neurological/Psychological: No symptoms reported -: Yes All other systems reviewed and negative Physical Exam - Vital signs Vitals: Temp 100.3 F 09/04/19 14:28 - Notes Notes: GENERAL: ill-appearing, well-nourished and in no acute distress. HEAD: Atraumatic, normocephalic. EYES: Pupils equal round and reactive to light, extraocular movements intact, sclera anicteric, conjunctiva are normal. ENT: External ears normal, nares patent, oropharynx clear without exudates. Moist mucous membranes. NECK: Normal range of motion, supple without lymphadenopathy or JVD. LUNGS: Breath sounds clear to auscultation bilaterally and equal. No wheezes rales or rhonchi. HEART: Regular rate and rhythm without murmurs, rubs or gallops. ABDOMEN: Soft, moderate tenderness in RLQ, normoactive bowel sounds. No guarding, no rebound. No masses appreciated. : Bilateral flank tenderness on palpation EXTREMITIES: Normal range of motion, no pitting or edema. No clubbing or cyanosis. NEUROLOGICAL: Cranial nerves II through XII grossly intact. Normal speech, normal gait. PSYCH: Normal mood, normal affect. SKIN: Warm, Dry, normal turgor, no rashes or lesions noted. Course - Re-evaluation Re-evalutation: 09/04/19 17:10 The patient has acute appendicitis based on CT. Dr. Cuello of Surgery was consulted and he will admit the patient for further care. Dr. Cuello would like the patient started on Levaquin and Flagyl prior to admission. - Vital Signs Vital signs: Temp Pulse Resp BP Pulse Ox 100.3 F 101 H 16 127/67 H 95 09/04/19 16:31 09/04/19 16:27 09/04/19 16:27 09/04/19 16:31 09/04/19 16:27 - Laboratory Result Diagrams: 09/04/19 13:25 09/04/19 13:25 Laboratory results interpreted by me: 09/04/19 09/04/19 09/04/19 13:25 13:25 14:21 WBC 14.7 H Hct 35.5 L Lymph % (Auto) 9.5 L Absolute Neuts (auto) 12.2 H Seg Neutrophils % 83.0 H Sodium 133.2 L AST 39 H ALT 50 H Urine Blood SMALL H - Diagnostic Test Radiology reviewed: Image reviewed, Reports reviewed Discharge - Discharge Clinical Impression: Appendicitis Qualifiers: Appendicitis type: acute appendicitis Acute appendicitis type: unspecified acute appendicitis type Qualified Code(s): K35.80 - Unspecified acute appendicitis Condition: Stable Disposition: ADMITTED INPATIENT Admitting Provider: Surgicalist Unit Admitted: Surgical Floor Referrals: JEANINE GARCIA CNM [Primary Care Provider] - Follow up as needed
[2019-09-04] MEDS ORDERED: ONDANSETRON HCL INJ/PF 4 MG/2 ML SDV IV ONE (13:34)
[2019-09-04 14:08] LABS: ABSOLUTE LYMPHOCYTES (AUTO) 1.4 10^3/uL (0.5-4.7); ABSOLUTE MONOCYTES (AUTO) 1.1 10^3/uL (0.1-1.4); ABSOLUTE NEUT (AUTO) 12.2 10^3/uL (1.7-8.2); BASOPHILS % (AUTO) 0.2 % (0-2); HEMATOCRIT 35.5 % (36.0-47.0); HEMOGLOBIN 12.3 g/dL (12.0-15.5); LYMPHOCYTES % (AUTO) 9.5 % (13-45); MEAN CORPUSCULAR HEMOGLOBIN 29.3 pg (27.0-33.4); MEAN CORPUSCULAR HGB CONC 34.5 g/dL (32.0-36.0); MEAN CORPUSCULAR VOLUME 85 fl (80-97); MONOCYTES % (AUTO) 7.3 % (3-13); PLATELET COUNT 274 10^3/uL (150-450); RED BLOOD COUNT 4.19 10^6/uL (3.72-5.28); RED CELL DISTRIBUTION WIDTH 13.4 % (11.5-14.0); TOTAL CELLS COUNTED % (AUTO) 100 %; WHITE BLOOD COUNT 14.7 10^3/uL (4.0-10.5)
[2019-09-04 14:18] LABS: ALBUMIN 4.5 g/dL (3.5-5.0); ALKALINE PHOSPHATASE 78 U/L (38-126); ANION GAP 10 (5-19); ASPARTATE AMINO TRANSFERASE 39 U/L (14-36); BILIRUBIN,TOTAL 0.8 mg/dL (0.2-1.3); BLOOD UREA NITROGEN 8 mg/dL (7-20); CALCIUM 9.5 mg/dL (8.4-10.2); CARBON DIOXIDE 25 mmol/L (22-30); CHLORIDE 98 mmol/L (98-107); GLUCOSE 110 mg/dL (75-110); POTASSIUM 4.1 mmol/L (3.6-5.0); TOTAL PROTEIN 8.2 g/dL (6.3-8.2)
[2019-09-04 14:43] LABS: APPEARANCE,URINE CLEAR; BILIRUBIN,URINE NEGATIVE (NEGATIVE); COLOR,URINE YELLOW; GLUCOSE, URINE NEGATIVE (NEGATIVE); KETONES,URINE NEGATIVE (NEGATIVE); LEUKOCYTE ESTERASE,URINE NEGATIVE (NEGATIVE); NITRITE,URINE NEGATIVE (NEGATIVE); PROTEIN,URINE NEGATIVE (NEGATIVE); URINE SPECIFIC GRAVITY 1.005; UROBILINOGEN,URINE NEGATIVE mg/dL (<2.0)
--- NOTE | 2019-09-04 16:05 | RADIOLOGY REPORT (SQ) ---
EXAM DESCRIPTION: CT ABD/PELVIS WITH IV ONLY IMAGES COMPLETED DATE/TIME: 09/04/2019 3:37 pm REASON FOR STUDY: eval for appendicitis COMPARISON: 07/15/2012 TECHNIQUE: CT scan of the abdomen and pelvis performed using helical scanning technique with dynamic intravenous contrast injection. No oral contrast. Images reviewed with lung, soft tissue, and bone windows. Reconstructed coronal and sagittal MPR images reviewed. Delayed images for evaluation of the urinary system also acquired. All images stored on PACS. All CT scanners at this facility use dose modulation, iterative reconstruction, and/or weight based d osing when appropriate to reduce radiation dose to as low as reasonably achievable (ALARA). [facility]: Dose Right [facility]: CareDose [facility]: Dose Right [facility]: Teradose 4D [facility]: Kuailexue CONTRAST TYPE AND DOSE: contrast/concentration: Isovue 350.00 mg/ml; Total Contrast Delivered: 100.0 ml; Total Saline Delivered: 68.0 ml RENAL FUNCTION: None required. The patient is less than 50 years old. RADIATION DOSE: CT Rad equipment meets quality standard of care and radiation dose reduction techniq ues were employed. CTDIvol: 17.0 - 20.4 mGy. DLP: 2242 mGy-cm.. LIMITATIONS: None. FINDINGS: LOWER CHEST: Minimal atelectasis at the right base. LIVER: Normal size. No masses. No dilated ducts. SPLEEN: Normal size. No focal lesions. PANCREAS: No masses. No significant calcifications. No adjacent inflammation or peripancreatic fluid collections. Pancreatic duct not dilated. GALLBLADDER: No identified stones by CT criteria. No inflammatory changes to suggest cholecystitis. ADRENAL GLANDS: No significant masses or asymmetry. RIGHT KIDNEY AND URETER: No solid masses. No significant calcifications. No hydronephrosis or hyd roureter. LEFT KIDNEY AND URETER: No solid masses. No significant calcifications. No hydronephrosis or hydr oureter. AORTA AND VESSELS: No aneurysm. No dissection. Renal arteries, SMA, celiac without stenosis. RETROPERITONEUM: No retroperitoneal adenopathy, hemorrhage or masses. BOWEL AND PERITONEAL CAVITY: No masses or inflammatory changes. No free fluid or peritoneal masses. APPENDIX: Inflammatory changes in the right lower quadrant with minimal fluid. Mildly dilated append ix. Consistent with acute appendicitis. No abscess or perforation. PELVIS: No mass. No free fluid. Normal bladder. ABDOMINAL WALL: No masses. No hernias. BONES: No significant or acute findings. OTHER: No other significant finding. IMPRESSION: Acute appendicitis. No perforation or abscess. COMMENT: The findings were sent to the Radiology Results Communication Center at 15:59 on 09/04/2019 to be communicated to a licensed caregiver. TECHNICAL DOCUMENTATION: JOB ID: [id number] Quality ID # [id number]: Final reports with documentation of one or more dose reduction techniques (e.g., Au tomated exposure control, adjustment of the mA and/or kV according to patient size, use of iterative reconstruction technique) 2010 [employer]- All Rights Reserved Reading location - IP/workstation name: [email or web address]
[2019-09-04] MEDS ORDERED: LEVOFLOXACIN 750 MG/D5W RTU 750 MG/150 ML RTUPB IV ONE (17:09)
--- NOTE | 2019-09-04 17:41 | PDOC H&P ---
History of Present Illness Admission Date/PCP: JEANINE GARCIA CNM Patient complains of: Abdominal pain History of Present Illness: CHRISTIE ESPINOZA is a 33 year old female in usual state of excellent health up until last night when she developed epigastric abdominal pain that later localized to the right lower quadrant radiating to her flank. She has had associated nausea and vomiting and fever but no diarrhea. She denies any prior episode of this sort of pain. She is otherwise healthy with only past history of in the remote past. Past Medical History Cardiac Medical History: Reports: Hypertension Past Surgical History Past Surgical History: Reports: Section Social History Lives with: Family Smoking Status: Never Smoker Frequency of Alcohol Use: None Hx Recreational Drug Use: No Family History Family History: Reviewed & Not Pertinent Parental Family History Reviewed: Yes Children Family History Reviewed: Yes Sibling(s) Family History Reviewed.: Yes Medication/Allergy Home Medications: 95/Iron Fum/Folic/Dha [ + Dha Combo Pack] 1 tab PO DAILY 12/11/18 Ibuprofen [Motrin 800 mg Tablet] 800 mg PO Q8A #60 tablet 02/23/19 Allergies/Adverse Reactions: No Known Allergies Allergy (Verified 02/20/19 17:55) Review of Systems All systems: reviewed and no additional remarkable complaints except as stated Constitutional: PRESENT: as per HPI Gastrointestinal: PRESENT: as per HPI Physical Exam Vital Signs: Temp Pulse Resp BP Pulse Ox 100.3 F 101 H 16 127/67 H 95 09/04/19 16:31 09/04/19 16:27 09/04/19 16:27 09/04/19 16:31 09/04/19 16:27 Intake & Output 09/03/19 09/04/19 09/05/19 06:59 06:59 06:59 Intake Total 1000 Balance 1000 Weight 99.79 kg General appearance: PRESENT: no acute distress, cooperative Eye exam: PRESENT: conjunctiva pink Neck exam: PRESENT: other - Supple with no masses and no tenderness. Respiratory exam: PRESENT: clear to auscultation huey Cardiovascular exam: PRESENT: RRR GI/Abdominal exam: PRESENT: other - Soft, nondistended, right-sided abdominal tenderness most pronounced in the right lower quadrant but no guarding. Neurological exam: PRESENT: alert, awake Psychiatric exam: PRESENT: appropriate affect Skin exam: PRESENT: warm Results Laboratory Results: 09/04/19 13:25 09/04/19 13:25 09/04/19 09/04/19 09/04/19 13:25 13:25 13:25 WBC 14.7 H RBC 4.19 Hgb 12.3 Hct 35.5 L MCV 85 MCH 29.3 MCHC 34.5 RDW 13.4 Plt Count 274 Seg Neutrophils % 83.0 H Sodium 133.2 L Potassium 4.1 Chloride 98 Carbon Dioxide 25 Anion Gap 10 BUN 8 Creatinine 0.55 Est GFR ( Amer) > 60 Glucose 110 Lactic Acid 1.4 Calcium 9.5 Total Bilirubin 0.8 AST 39 H Alkaline Phosphatase 78 Total Protein 8.2 Albumin 4.5 Lipase 30.2 Urine Color Urine Appearance Urine pH Ur Specific [place] Urine Protein Urine Glucose (UA) Urine Ketones Urine Blood Urine Nitrite Ur Leukocyte Esterase Urine WBC (Auto) Urine RBC (Auto) 09/04/19 14:21 WBC RBC Hgb Hct MCV MCH MCHC RDW Plt Count Seg Neutrophils % Sodium Potassium Chloride Carbon Dioxide Anion Gap BUN Creatinine Est GFR ( Amer) Glucose Lactic Acid Calcium Total Bilirubin AST Alkaline Phosphatase Total Protein Albumin Lipase Urine Color YELLOW Urine Appearance CLEAR Urine pH 8.0 Ur Specific [place] 1.005 Urine Protein NEGATIVE Urine Glucose (UA) NEGATIVE Urine Ketones NEGATIVE Urine Blood SMALL H Urine Nitrite NEGATIVE Ur Leukocyte Esterase NEGATIVE Urine WBC (Auto) 1 Urine RBC (Auto) 1 Impressions: Abdomen/Pelvis CT 09/04/19 12:57 IMPRESSION: Acute appendicitis. No perforation or abscess. Assessment & Plan - Diagnosis (1) Appendicitis Qualifiers: Appendicitis type: acute appendicitis Acute appendicitis type: unspecified acute appendicitis type Qualified Code(s): K35.80 - Unspecified acute appendicitis Is this a current diagnosis for this admission?: Yes Plan: Appendicitis likely. Plan laparoscopic appendectomy possible open appendectomy. I have discussed with the patient via water resource agent risk and benefits of the procedure including risk of mistaken diagnosis, bleeding, infection, stump leak, adjacent structure injury, heart lung risks. Patient understands and agrees to proceed.
[2019-09-04] MEDS ORDERED: FENTANYL CITRATE INJ/PF 250 MCG/5 ML AMPULE ONE (18:59)
[2019-09-04] MEDS ORDERED: PROPOFOL INJ 200 MG/20 ML VIAL IV ONE (19:00)
[2019-09-04] MEDS ORDERED: ONDANSETRON HCL INJ/PF 4 MG/2 ML SDV ONE (19:00)
[2019-09-04] MEDS ORDERED: MIDAZOLAM 2 MG/2 ML INJ ONE (19:00)
[2019-09-04] MEDS ORDERED: BUPIVACAINE HCL 0.25 % INJ/PF (2.5 MG/1 ML) 30 ML VIAL ONE (19:08)
[2019-09-04] MEDS: METRONIDAZOLE 500 MG/NS RTU 500 MG/100 ML RTUPB IV SCH ×2 (19:10→23:28)
[2019-09-04] MEDS ORDERED: MORPHINE SULFATE 10 MG/ML INJ IV PRN ×2 (19:48→20:50)
[2019-09-04] MEDS ORDERED: DIPHENHYDRAMINE HCL 50 MG/ML VIAL IV PRN (19:48)
[2019-09-04] MEDS ORDERED: FENTANYL CITRATE INJ/PF 100 MCG/2 ML AMPUL IV PRN ×3 (19:48)
[2019-09-04] MEDS ORDERED: PROMETHAZINE HCL INJ 25 MG/1 ML VIAL IV PRN (19:48)
[2019-09-04] MEDS ORDERED: MEPERIDINE HCL/PF INJ 25 MG/1 ML DISP.SYRIN IV PRN (19:48)
--- NOTE | 2019-09-04 20:46 | Operative Report ---
Operative Report DATE OF SURGERY: 09/04/19 PREOPERATIVE DIAGNOSIS: Appendicitis POSTOPERATIVE DIAGNOSIS: Appendicitis OPERATION: Laparoscopic appendectomy SURGEON: NIMA GUZMAN ANESTHESIA: GA TISSUE REMOVED OR ALTERED: Appendix COMPLICATIONS: None ESTIMATED BLOOD LOSS: 20 cc INTRAOPERATIVE FINDINGS: Markedly distended inflamed appendix without evidence of perforation. PROCEDURE: Informed consent was obtained. Patient was brought to the operating room placed on the operating room table in the supine position. After satisfactory induction of general anesthesia patient's abdomen was prepped and draped in usual sterile fashion. A supraumbilical midline incision was made dissection carried down through the fascia and the peritoneal cavity was entered. Roman trocar was inserted and pneumoperitoneum produced with good patient toleration. A 5 mm trocar was placed in the right lateral abdomen lateral to the rectus above the level of the umbilicus. Another 5 mm trocar was placed in the left lateral abdomen lateral to the rectus below the level of the umbilicus. Patient was placed in a Trendelenburg position with the right side up. The appendix appeared distended and inflamed but not perforated. The appendix was mobilized from its adhesions. A plane was created between the mesoappendix and the appendix at the base of the appendix. Using a Endo JOSHUA stapling device the appendix was taken flush with the cecum. The stump closure appeared secure. The mesoappendix was taken using clips. Hemostasis appeared good. The operative field was lightly irrigated and irrigant aspirated out. The appendix was placed in an Endobag and removed through the Roman trocar site fascial defect. Omentum was draped over the stump. All trochars were removed under the direct vision of the laparoscope to ensure hemostasis. The Roman trocar site fascial defect was closed with interrupted Vicryl sutures. All skin incisions were closed with subcuticular interrupted Monocryl sutures. Marcaine was injected at the operative sites. Patient tolerated procedure well with no halle arent complications and was taken to the recovery area in stable condition.
[2019-09-04] MEDS ORDERED: NORMAL SALINE 1000 ML 1,000 ML IV PRN (20:47)
[2019-09-04] MEDS ORDERED: ONDANSETRON HCL INJ/PF 4 MG/2 ML SDV IV PRN (20:47)
[2019-09-05] MEDS: METRONIDAZOLE 500 MG/NS RTU 500 MG/100 ML RTUPB IV SCH (05:12)
[2019-09-05 07:12] LABS: ABSOLUTE BASOPHILS # (AUTO) 0.1 10^3/uL (0.0-0.2); ABSOLUTE LYMPHOCYTES (AUTO) 2.6 10^3/uL (0.5-4.7); ABSOLUTE MONOCYTES (AUTO) 0.7 10^3/uL (0.1-1.4); ABSOLUTE NEUT (AUTO) 8.3 10^3/uL (1.7-8.2); BASOPHILS % (AUTO) 0.8 % (0-2); EOSINOPHILS % (AUTO) 0.1 % (0-6); HEMATOCRIT 32.8 % (36.0-47.0); HEMOGLOBIN 11.1 g/dL (12.0-15.5); MEAN CORPUSCULAR HEMOGLOBIN 29.1 pg (27.0-33.4); MEAN CORPUSCULAR HGB CONC 33.8 g/dL (32.0-36.0); MEAN CORPUSCULAR VOLUME 86 fl (80-97); MONOCYTES % (AUTO) 5.8 % (3-13); PLATELET COUNT 247 10^3/uL (150-450); RED BLOOD COUNT 3.81 10^6/uL (3.72-5.28); RED CELL DISTRIBUTION WIDTH 13.5 % (11.5-14.0); SEGMENTED NEUTROPHILS % (AUTO) 71.3 % (42-78); TOTAL CELLS COUNTED % (AUTO) 100 %; WHITE BLOOD COUNT 11.7 10^3/uL (4.0-10.5)
[2019-09-05 07:21] LABS: ANION GAP 8 (5-19); BLOOD UREA NITROGEN 5 mg/dL (7-20); CALCIUM 8.7 mg/dL (8.4-10.2); CARBON DIOXIDE 23 mmol/L (22-30); CHLORIDE 103 mmol/L (98-107); GLUCOSE 104 mg/dL (75-110); POTASSIUM 3.9 mmol/L (3.6-5.0)
--- NOTE | 2019-09-05 08:56 | PDOC DISCHARGE SUMMARY ---
General - Admit/Disc Date/PCP Admission Date/Primary Care Provider: 09/04/19 17:21 JEANINE GARCIA CNM Discharge Date: 09/05/19 - Discharge Diagnosis Final Diagnosis: acute appendicits - Assessment Summary: pt admitted with acute appendicitis. She was taken to the operating room on the day of admission for laparoscopic appendectomy. She underwent the procedure and tolerated well. The following morning she was tolerating a diet she was afebrile stable vital signs she had minimal amount of abdominal pain and ready for discharge home. She will follow-up in 7 to 10 days after discharge for check. Final diagnosis acute appendicitis - Additional Information Resuscitation Status: Full Code Discharge Diet: As Tolerated Discharge Activity: Activity As Tolerated, No Lifting Over 10 Pounds Referrals: JEANINE GARCIA CNM [Primary Care Provider] - Follow up as needed Home Medications: No Home Medications 09/04/19 History of Present Illiness History of Present Illness: CHRISTIE ESPINOZA is a 33 year old female Physical Exam Vital Signs: Temp Pulse Resp BP Pulse Ox 98.5 F 87 18 120/68 94 09/05/19 07:45 09/05/19 07:45 09/05/19 07:45 09/05/19 07:45 09/05/19 07:45 Intake & Output 09/04/19 09/05/19 09/06/19 06:59 06:59 06:59 Intake Total 2040 Output Total 115 Balance 1925 Weight 99.79 kg Results Laboratory Results: WBC 11.7 10^3/uL (4.0-10.5) H 09/05/19 06:55 RBC 3.81 10^6/uL (3.72-5.28) 09/05/19 06:55 Hgb 11.1 g/dL (12.0-15.5) L 09/05/19 06:55 Hct 32.8 % (36.0-47.0) L 09/05/19 06:55 MCV 86 fl (80-97) 09/05/19 06:55 MCH 29.1 pg (27.0-33.4) 09/05/19 06:55 MCHC 33.8 g/dL (32.0-36.0) 09/05/19 06:55 RDW 13.5 % (11.5-14.0) 09/05/19 06:55 Plt Count 247 10^3/uL (150-450) 09/05/19 06:55 Lymph % (Auto) 22.0 % (13-45) 09/05/19 06:55 [place] % (Auto) 5.8 % (3-13) 09/05/19 06:55 Eos % (Auto) 0.1 % (0-6) 09/05/19 06:55 Baso % (Auto) 0.8 % (0-2) 09/05/19 06:55 Absolute Neuts (auto) 8.3 10^3/uL (1.7-8.2) H 09/05/19 06:55 Absolute Lymphs (auto) 2.6 10^3/uL (0.5-4.7) 09/05/19 06:55 Absolute Monos (auto) 0.7 10^3/uL (0.1-1.4) 09/05/19 06:55 Absolute Eos (auto) 0.0 10^3/uL (0.0-0.6) 09/05/19 06:55 Absolute Basos (auto) 0.1 10^3/uL (0.0-0.2) 09/05/19 06:55 Seg Neutrophils % 71.3 % (42-78) 09/05/19 06:55 Sodium 134.0 mmol/L (137-145) L 09/05/19 06:55 Potassium 3.9 mmol/L (3.6-5.0) 09/05/19 06:55 Chloride 103 mmol/L (98-107) 09/05/19 06:55 Carbon Dioxide 23 mmol/L (22-30) 09/05/19 06:55 Anion Gap 8 (5-19) 09/05/19 06:55 BUN 5 mg/dL (7-20) L 09/05/19 06:55 Creatinine 0.48 mg/dL (0.52-1.25) L 09/05/19 06:55 Est GFR ( Amer) > 60 (>60) 09/05/19 06:55 Est GFR (MDRD) Non-Af > 60 (>60) 09/05/19 06:55 Glucose 104 mg/dL (75-110) 09/05/19 06:55 Lactic Acid 1.4 mmol/L (0.7-2.1) 09/04/19 13:25 Calcium 8.7 mg/dL (8.4-10.2) 09/05/19 06:55 Total Bilirubin 0.8 mg/dL (0.2-1.3) 09/04/19 13:25 Direct Bilirubin 0.0 mg/dL (0.0-0.4) 09/04/19 13:25 Neonat Total Bilirubin Not Reportable 09/04/19 13:25 Neonat Direct Bilirubin Not Reportable 09/04/19 13:25 Neonat Indirect Bili Not Reportable 09/04/19 13:25 AST 39 U/L (14-36) H 09/04/19 13:25 ALT 50 U/L (<35) H 09/04/19 13:25 Alkaline Phosphatase 78 U/L (38-126) 09/04/19 13:25 Total Protein 8.2 g/dL (6.3-8.2) 09/04/19 13:25 Albumin 4.5 g/dL (3.5-5.0) 09/04/19 13:25 Lipase 30.2 U/L (23-300) 09/04/19 13:25 Urine Color YELLOW 09/04/19 14:21 Urine Appearance CLEAR 09/04/19 14:21 Urine pH 8.0 (5.0-9.0) 09/04/19 14:21 Ur Specific [place] 1.005 09/04/19 14:21 Urine Protein NEGATIVE mg/dL (NEGATIVE) 09/04/19 14:21 Urine Glucose (UA) NEGATIVE mg/dL (NEGATIVE) 09/04/19 14:21 Urine Ketones NEGATIVE mg/dL (NEGATIVE) 09/04/19 14:21 Urine Blood SMALL (NEGATIVE) H 09/04/19 14:21 Urine Nitrite NEGATIVE (NEGATIVE) 09/04/19 14:21 Urine Bilirubin NEGATIVE (NEGATIVE) 09/04/19 14:21 Urine Urobilinogen NEGATIVE mg/dL (<2.0) 09/04/19 14:21 Ur Leukocyte Esterase NEGATIVE (NEGATIVE) 09/04/19 14:21 Urine WBC (Auto) 1 /HPF 09/04/19 14:21 Urine RBC (Auto) 1 /HPF 09/04/19 14:21 Urine Bacteria (Auto) TRACE /HPF 09/04/19 14:21 Squamous Epi Cells Auto 11 /HPF 09/04/19 14:21 Urine Mucus (Auto) RARE /LPF 09/04/19 14:21 Urine Ascorbic Acid NEGATIVE (NEGATIVE) 09/04/19 14:21 Urine HCG, Qual NEGATIVE (NEGATIVE) 09/04/19 14:21 Impressions: Abdomen/Pelvis CT 09/04/19 12:57 IMPRESSION: Acute appendicitis. No perforation or abscess.
[2019-09-05 09:43] VITALS: BP 122/72
== END 2019-09-05 10:50 | disposition home or self-care (01) ==
LOC: ER 12:40 → OROUT 17:21 → EH 17:21 → UNDOADMIN 17:21 → EH 18:30 → 2S 18:30 → UNDODISIN 09-05 10:50 → OROUT 09-05 10:50
PROVIDERS: ATTEND Surgery
DX: K35.80 Unspecified acute appendicitis (principal); I10 Essential (primary) hypertension
CPT/HCPCS: 99285; 96361; 96374; 36415 ×2; 87040; 87086; 83605; 83690; 85025 ×2; 81025; 80048; 80053; 81001; 88304 ×2; 74177; 99140; 00840; 44970; J2250; J3490 ×5; J3010; J2270; J2710; J0330; J2405; J7030; J2704; J1956; 840